=== PATIENT | male | born 2000 | race Caucasian/White ===

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

== ENCOUNTER 2020-01-01 01:18 | Emergency (ER) | payer OTHER ==
[~2020-01-01] VITALS: Ht 200.7 cm; Wt 126.1 kg
[2020-01-01 01:31] VITALS: Ht 200.7 cm; Wt 126.1 kg
[2020-01-01 02:20] VITALS: BP 133/47
== END 2020-01-01 02:20 | disposition home or self-care (01) ==
LOC: ED 01:18
DX: K04.7 Periapical abscess without sinus (principal); K02.9 Dental caries, unspecified

== ENCOUNTER 2020-03-24 20:23 | Emergency (ER) | payer OTHER ==
[~2020-03-24] VITALS: Ht 200.7 cm; Wt 117.9 kg
[2020-03-24 20:30] VITALS: BP 138/69; Ht 200.7 cm; Wt 117.9 kg
== END 2020-03-24 22:37 | disposition home or self-care (01) ==
LOC: ED 20:23
DX: S60.451A Superficial foreign body of left index finger, initial encounter (principal); W45.8XXA Other foreign body or object entering through skin, initial encounter; Y93.89 Activity, other specified; Y92.89 Other specified places as the place of occurrence of the external cause; Y99.8 Other external cause status
CPT/HCPCS: 90715; J2001